=== PATIENT | female | born 1955 | race Caucasian/White ===

== ENCOUNTER 2021-03-24 08:14 | Outpatient (CLI) | payer MEDICARE | END 2021-03-24 08:15 | disposition home or self-care (01) | LOC: RAD 08:14 | PROVIDERS: ATTEND Internal Medicine Critical Care Medicine | DX: R06.00 Dyspnea, unspecified (principal); I70.0 Atherosclerosis of aorta | CPT/HCPCS: 71046 ==

== ENCOUNTER 2021-03-25 09:19 | Outpatient (CLI) | payer MEDICARE ==
[2021-03-25] MEDS ORDERED: Sodium Chloride 0.9% 20 ML ONE (11:10)
== END 2021-03-25 09:20 | disposition home or self-care (01) ==
LOC: RAD 09:19
PROVIDERS: ATTEND Orthopaedic Surgery
DX: T84.011A Broken internal left hip prosthesis, initial encounter (principal); T84.52XA Infection and inflammatory reaction due to internal left hip prosthesis, initial encounter
CPT/HCPCS: 76942; 87070; 87205

== ENCOUNTER 2021-06-05 19:30 | Outpatient (CLI) | payer MEDICARE | END 2021-06-05 19:31 | disposition home or self-care (01) | LOC: SLEEPLAB 19:30 | PROVIDERS: ATTEND Internal Medicine Critical Care Medicine | DX: G47.33 Obstructive sleep apnea (adult) (pediatric) (principal); R53.83 Other fatigue; G47.59 Other parasomnia; R06.83 Snoring; G47.10 Hypersomnia, unspecified; G47.00 Insomnia, unspecified | CPT/HCPCS: 95811 ==

== ENCOUNTER 2022-08-18 12:29 | Outpatient (CLI) | payer MEDICARE | END 2022-08-18 12:30 | disposition home or self-care (01) | LOC: BICMAMMO 12:29 | PROVIDERS: ATTEND Internal Medicine | DX: Z12.31 Encounter for screening mammogram for malignant neoplasm of breast (principal) | CPT/HCPCS: 77063; 77067 ==

== ENCOUNTER 2023-03-07 10:47 | Outpatient (CLI) | payer MEDICARE | END 2023-03-07 10:48 | disposition home or self-care (01) | LOC: CT 10:47 | PROVIDERS: ATTEND Internal Medicine Gastroenterology | DX: R10.13 Epigastric pain (principal); Z90.49 Acquired absence of other specified parts of digestive tract | CPT/HCPCS: 74160; 82565 ==

== ENCOUNTER 2024-05-01 10:05 | Outpatient (CLI) | payer MEDICARE | END 2024-05-01 10:06 | disposition home or self-care (01) | LOC: SCSMRI 10:05 | PROVIDERS: ATTEND Family Medicine | DX: M47.26 Other spondylosis with radiculopathy, lumbar region (principal); M51.16 Intervertebral disc disorders with radiculopathy, lumbar region; M48.061 Spinal stenosis, lumbar region without neurogenic claudication; M43.16 Spondylolisthesis, lumbar region; Z96.641 Presence of right artificial hip joint | CPT/HCPCS: 72148 ==